=== PATIENT | female | born 1980 ===

== ENCOUNTER 2016-10-09 16:53 | Emergency (ER) | payer SELFPAY ==
[2016-10-09 17:05] VITALS: BP 132/92
--- NOTE | 2016-10-09 18:43 | UC ---
Ear Complaint HPI - HPI Summary HPI Summary: 3 DAYS OF LEFT EAR PAIN AND DECREASED HEARING. NO DRAINAGE. IS HERE VISITING FROM [facility]. HAS BEEN DOING A LOT OF SWIMMING IN BOTH LAKES AND POOLS. NO IMPROVEMENT WITH OTC SWIMMERS EAR DROPS. NO FEVER OR URI SX. - History of Current Complaint Chief Complaint: UCEar Stated Complaint: EAR INFECTION Time Seen by Provider: 10/09/16 18:34 Hx Obtained From: Patient Hx Last Menstrual Period: 3 wks ago Onset/Duration: Gradual Onset, Lasting Days, Still Present Pain Intensity: 6 Pain Scale Used: 0-10 Numeric Aggravating Factors: Nothing Alleviating Factors: Nothing Associated Signs/Symptoms: Positive: Hearing Loss - Allergies/Home Medications Allergies/Adverse Reactions: Allergies Allergy/AdvReac Type Severity Reaction Status Date / Time No Known Allergies Allergy Verified 10/09/16 17:05 Home Medications: Home Medications Levothyroxine TAB* [Synthroid 125 MCG TAB*] 10/09/16 [History Confirmed ] Natalizumab* [Tysabri*] 10/09/16 [History] PMH/Surg Hx/FS Hx/Imm Hx - Additional Past Medical History Additional PMH: MULTIPLE SCLEROSIS Endocrine History: Hypothyroidism - Surgical History Surgical History: None - Family History Known Family History: Positive: Diabetes - Social History Alcohol Use: None Substance Use Type: None Smoking Status (MU): Light Every Day Tobacco Smoker Review of Systems Constitutional: Negative ENT: Ear Ache Respiratory: Negative Cardiovascular: Negative Gastrointestinal: Negative All Other Systems Reviewed And Are Negative: Yes Physical Exam Triage Information Reviewed: Yes Appearance: Well-Appearing, No Pain Distress, Well-Nourished Vital Signs: Initial Vital Signs Temp 98.3 F 10/09/16 17:01 Pulse 83 10/09/16 17:01 Resp 18 10/09/16 17:01 BP 132/92 10/09/16 17:01 Pulse Ox 100 10/09/16 17:01 Vital Signs Reviewed: Yes Eyes: Positive: Conjunctiva Clear ENT: Positive: Hearing grossly normal, Pharynx normal, Other: - RIGHT TM NORMAL. LEFT EAC EDEMATOUS WITH DEBRIS. TM WITH PURULENCE BEHIND IT Neck: Positive: Supple, Nontender, No Lymphadenopathy Respiratory Exam: Normal Cardiovascular Exam: Normal Abdomen Description: Positive: Soft Musculoskeletal: Positive: No Edema Neurological: Positive: Alert Psychological: Positive: Age Appropriate Behavior Skin: Negative: rashes Ear Complaint Course/Dx - Differential Dx/Diagnosis Provider Diagnoses: LEFT OTITIS MEDIA/OTITIS EXTERNA Discharge - Discharge Plan Condition: Stable Disposition: HOME Prescriptions: Amoxicillin PO (*) [Amoxicillin 500 MG CAP*] 1,000 mg PO Q12H #26 cap Patient Education Materials: Otitis Externa (ED), Otitis Media (ED) Additional Instructions: SEEK FOLLOW-UP HERE IF YOU ARE NOT IMPROVING EXPECTED.
[2016-10-09] MEDS ORDERED: Neomyc/Polym/HC 1% OTIC SUSP* **OTIC LEFT EAR ONE (18:49)
[2016-10-09] MEDS ORDERED: Amoxicillin PO (*) 500 MG CAP PO ONE (18:51)
== END 2016-10-09 18:55 | disposition home or self-care (01) ==
LOC: UCEAST 16:53
DX: H66.92 Otitis media, unspecified, left ear (principal); H60.92 Unspecified otitis externa, left ear; G35 Multiple sclerosis; E03.9 Hypothyroidism, unspecified; F17.210 Nicotine dependence, cigarettes, uncomplicated
CPT/HCPCS: 99203; A9270-GY; G0463